=== PATIENT | female | born 1995 | race African-American/Black ===

== ENCOUNTER 2018-12-15 11:23 | Emergency (ER) | payer OTHER ==
[~2018-12-15] VITALS: Ht 154.9 cm; Wt 77.1 kg
[2018-12-15 12:05] LABS: URINE BILIRUBIN NEGATIVE (Negative); URINE BLOOD 3+ (Negative); URINE COLOR YELLOW; URINE GLUCOSE-RANDOM* NEGATIVE (Negative); URINE KETONES NEGATIVE (Negative); URINE LEUKOCYTES-REFLEX NEGATIVE (Negative); URINE NITRITE-REFLEX NEGATIVE (Negative); URINE PROTEIN (DIPSTICK) TRACE (Negative); URINE SPECIFIC GRAVITY 1.015 (1.005-1.035)
[2018-12-15 12:07] LABS: URINE CLARITY HAZY
[2018-12-15 12:08] LABS: BASOPHILS 0.6 % (0.0-2.0); EOSINOPHILS 0.8 % (0.0-3.0); HEMATOCRIT 33.8 % (37.0-47.0); HEMOGLOBIN 10.7 gm/dL (12.0-15.0); LYMPHOCYTES 23.4 % (24.0-44.0); MCH 26.7 pg (26.0-34.0); MCHC 31.5 g/dL (28.0-37.0); MCV 84.7 fL (80.0-100.0); MONOCYTES 10.8 % (1.0-8.0); POLYS 64.4 % (36.0-66.0); RBC 3.99 mil/uL (4.20-5.00); RDW 14.8 % (10.5-14.5); WBC 9.3 thou/uL (4.0-11.0)
[2018-12-15 12:11] LABS: CALCIUM 8.8 mg/dL (8.5-10.1); CREATININE 0.8 mg/dL (0.6-1.0); POTASSIUM 3.6 mmol/L (3.5-5.1)
[2018-12-15 12:20] LABS: SQUAMOUS 0-3 Few /LPF (0-3)
[2018-12-15 12:21] LABS: CASTS None Seen /LPF (None Seen); CRYSTALS None Seen /LPF (None Seen); URINE RBC >20 Many /HPF (0-2); URINE WBC-REFLEX 0-5 Rare /HPF (0-5)
[2018-12-15 12:22] LABS: BACTERIA-REFLEX 1-9 Few /HPF (None Seen)
[2018-12-15] MEDS ORDERED: ULTRAM 50MG TAB50 MG PO (12:48)
[2018-12-15] MEDS ORDERED: NAPROSYN500 MG PO (12:48)
[2018-12-15 13:13] VITALS: BP 106/64
[2018-12-15 13:52] LABS: LARGE PLATELETS MANY; PLATELET COUNT 364 thou/uL (150-400)
== END 2018-12-15 13:14 | disposition home or self-care (01) ==
LOC: ER 11:23
PROVIDERS: Nurse Practitioner Family
DX: N94.6 Dysmenorrhea, unspecified (principal)

== ENCOUNTER 2019-11-06 09:48 | Inpatient (IN) | payer OTHER ==
[~2019-11-06] VITALS: Ht 154.9 cm; Wt 74.4 kg
--- NOTE | ~2019-11-06 | EMS ---
[facility] [address] [place] [address] EMS Patient Care Report Name: SHADY EDWARDS Room #: PRE DARRION M.Jaleesa#: [id number] Admission: Attend Phys: Discharge: Date of : [birth year] Report #: [id number] THIS REPORT FOR: //name// Report Transmitted: 11/06/2019 09:11 EMS Care Summary [facility] MED-ACT Incident [id number] @ 11/06/2019 09:23 Incident Location [address] [place] [address] Patient SHADY EDWARDS Female, 24 Years 1995 Patient Address [address] [place] [address] Patient History Ovarian Cysts, Patient Allergies No known allergies, Patient Medications None Reported, Chief Complaint abdominal and leg pain Disposition Transported No Lights/[place] [facility] Reason Sick Person Transported To [facility] Narrative The pt said she developed abdominal pain yesterday morning. She said the pain has been "sharp" and it increased over the last 24 hours. She said today, she [facility] [address] [place] [address] EMS Patient Care Report Name: SHADY EDWARDS Room #: PRE Anthony#: [id number] Admission: Attend Phys: Discharge: Date of : [birth year] Report #: [id number] also was having pain in both legs. She said she was diagnosed with an "ovarian cyst" about 2 years ago and she said the pain felt similar. The pt said she has been nauseated today off and on, but has not vomited. She denied diarrhea, fever, cough, blood in the stool, shortness of breath or headache. She said she hasn't been around anyone with COVID-19 recently or traveled. The pt was unable to rate her pain other than saying "it hurts." The pt said she had no possibility of . The pt was sitting on the floor inside her apartment. HPI, PMH, Exam, vitals. The pt walked to the ambulance and was secured in the capt's chair. Enroute: Vitals. Biocom to [place]. No orders req'd/rec'd. The pt walked to the ER and ER staff helped her into the bathroom for a urine sample. Report given to RN. Initial Vitals @09:40P: 62,R: 16,BP: 136/85,Pain: 5/10,GCS: 15,SpO2: 98,Revised Trauma: 12, @09:43P: 70,R: 18,Pain: 4/10,GCS: 15,SpO2: 98, Assessments @09:38MENTAL:Person Oriented,Time Oriented,Place Oriented,Event Oriented,SKIN:HEENT:Head/Face: No Abnormalities,Neck/Airway: No Abnormalities,LUNG SOUNDS:General: Nausea,General: Other,ABDOMEN:General: Nausea,General: Other,PELVIS//GI:No Abnormalities,EXTREMITIES:Right Leg: Abnormal Sensation,Left Leg: Abnormal Sensation,Left Arm: No Abnormalities,Right Arm: No Abnormalities,PULSE:NEURO:No Abnormalities, Impression Abdominal Pain Timeline 09:21,Call Received 09:21,Psap Call 09:23,Dispatched 09:23,En Route 09:31,On Scene 09:33,At Patient 09:36,Depart Scene 09:40,BP: 136/85 M,PULSE: 62,RR: 16 R,SPO2: 98 Ox,ETCO2: ,BG: ,PAIN: 5,GCS: 15, 09:43,BP: / M,PULSE: 70,RR: 18 R,SPO2: 98 Ox,ETCO2: ,BG: ,PAIN: 4,GCS: 15, 09:44,At Destination 09:53,Call Closed Disclaimer v1.1 Copyright 2020 [employer] This EMS Care Summary contains data elements from the applicable legal record [address] [address] EMS Patient Care Report Name: SHADY EDWARDS Room #: PRE M.R.#: [id number] Admission: Attend Phys: Discharge: Date of : [birth year] Report #: [id number] (which may be displayed differently). It is designed to provide pertinent information for the following purposes: continuity of care, clinical quality, and state data reporting. The complete legal record is available to ED staff and administrators of the receiving hospital in [employer] Patient Tracker. All data is provided "as is."
--- NOTE | ~2019-11-06 | O ---
[facility] [place] [address] OPERATIVE REPORT Name: SHADY EDWARDS Room #: 458-P ADM IN M.R.#: [id number] Admission: 11/06/19 Attend Phys: Mina Farah MD Discharge: Date of : [birth year] Report #: [id number] THIS REPORT FOR: cc: [facility] - Clinic physician unknown [facility] - Clinic physician unknown Faustino Greenberg MD ~ CC: [facility] unknown Mina Fraah DATE OF SERVICE: 11/07/2019 PREOPERATIVE DIAGNOSIS: Left lower abdominal wall fluid collection. POSTOPERATIVE DIAGNOSIS: Lower abdominal wall hematoma. OPERATION: Incision and drainage of left lower abdominal wall hematoma. SURGEON: Faustino Greenberg MD ANESTHESIA: General. ESTIMATED BLOOD LOSS: 5 mL. SPECIMEN: None. DESCRIPTION OF PROCEDURE: After informed consent was obtained, the patient was brought to the operating room and placed supine. SCDs were placed and working, preoperative antibiotics were administered, general anesthesia was induced. The abdomen was prepped and draped in the usual sterile fashion. A 3-cm incision was made over her previous incision in the left lower quadrant of the abdomen. Cautery dissection was made down to the rectus sheath. Rectus sheath was incised. Immediately old blood was removed. This was a hematoma. The blood was then suctioned out. The cavity was irrigated with normal saline. The fascia was reapproximated with a [id number] 0 Vicryl. The wound was then left packed with iodoform gauze. Sterile dressings were applied. COMPLICATIONS: None. DISPOSITION: The patient was taken to recovery in satisfactory condition. By: [id number] Faustino Greenberg MD /nt
[2019-11-06 09:48] VITALS: BP 148/71
[~2019-11-06 09:48] MED LIST: NAPROSYN500 MG PO; ULTRAM 50MG TAB50 MG PO
[2019-11-06 10:08] LABS: URINE BILIRUBIN NEGATIVE (Negative); URINE BLOOD 3+ (Negative); URINE CLARITY CLEAR; URINE COLOR YELLOW; URINE GLUCOSE-RANDOM* NEGATIVE (Negative); URINE KETONES NEGATIVE (Negative); URINE LEUKOCYTES-REFLEX TRACE (Negative); URINE PROTEIN (DIPSTICK) NEGATIVE (Negative); URINE SPECIFIC GRAVITY 1.025 (1.005-1.035); URINE UROBILINOGEN 0.2 E.U./dl (0.2-1.0)
[2019-11-06 10:10] LABS: URINE NITRITE-REFLEX POSITIVE (Negative)
[2019-11-06 10:19] LABS: BACTERIA-REFLEX >30 Many /HPF (None Seen); CASTS None Seen /LPF (None Seen); MUCUS 4-6 Moderate strn/LPF (None Seen); SQUAMOUS 4-10 Moderate /LPF (0-3); URINE RBC 3-10 Few /HPF (0-2); URINE WBC-REFLEX 0-5 Rare /HPF (0-5)
[2019-11-06 10:20] LABS: CRYSTALS None Seen /LPF (None Seen)
[2019-11-06 10:22] LABS: BASOPHILS 0.4 % (0.0-2.0); EOSINOPHILS 0.9 % (0.0-3.0); HEMATOCRIT 37.6 % (37.0-47.0); HEMOGLOBIN 12.2 gm/dL (12.0-15.0); LYMPHOCYTES 12.5 % (24.0-44.0); MCH 28.8 pg (26.0-34.0); MCHC 32.4 g/dL (28.0-37.0); MONOCYTES 9.1 % (1.0-8.0); POLYS 77.1 % (36.0-66.0); RBC 4.23 mil/uL (4.20-5.00); WBC 11.7 thou/uL (4.0-11.0)
[2019-11-06 10:25] LABS: CREATININE 0.7 mg/dL (0.6-1.0); POTASSIUM 3.7 mmol/L (3.5-5.1)
[2019-11-06 10:31] LABS: ALBUMIN 4.1 g/dL (3.4-5.0); TOTAL BILIRUBIN 0.5 mg/dL (0.2-1.0); TOTAL PROTEIN 8.3 g/dL (6.4-8.2)
[2019-11-06 14:24] LABS: PLATELET COUNT 321 thou/uL (150-400)
[2019-11-06 16:06] LABS: AMP/METHAMP Negative (Negative); BARBITURATES Negative (Negative); BENZODIAZEPINES Negative (Negative); COCAINE Negative (Negative); METHADONE Negative (Negative); OPIATES POSITIVE (Negative); PCP Negative (Negative)
[2019-11-06 22:31] VITALS: BP 92/66
[2019-11-06 22:42] VITALS: BP 94/45
[2019-11-06 22:54] VITALS: BP 108/56
--- NOTE | 2019-11-07 00:34 | NUR ---
ADMITTED TO THE UNIT AT AT APPROXIMATELY 2330. PT IS A/O AND UP AD KIARA. ABLE TO MAKE NEEDS KNOWN. C/O PAIN IN LOWER ABDOMEN. PRN PAIN MEDICATION WILL BE GIVEN DIRECTED. CONSENTS SIGNED, HX AND ASSESSMENT COMPLETED AND DOCUMENTED. CALL LIGHT IS WITHIN REACH. WILL CONTINUE TO MONITOR.
[2019-11-07 04:55] VITALS: BP 98/49
[2019-11-07 06:48] LABS: HEMATOCRIT 31.5 % (37.0-47.0); MCHC 32.5 g/dL (28.0-37.0); MCV 89.3 fL (80.0-100.0); RBC 3.52 mil/uL (4.20-5.00); RDW 15.9 % (10.5-14.5); WBC 7.5 thou/uL (4.0-11.0)
[2019-11-07 06:54] LABS: HEMOGLOBIN 10.2 gm/dL (12.0-15.0)
[2019-11-07 07:05] VITALS: BP 112/63
[2019-11-07 07:09] LABS: CALCIUM 7.8 mg/dL (8.5-10.1); CREATININE 0.7 mg/dL (0.6-1.0); POTASSIUM 3.3 mmol/L (3.5-5.1)
--- NOTE | 2019-11-07 12:22 | NUR ---
Received awake on bed. On nothing per orem- pt informed and aware. A+Ox4. On MS. On room air. Vital signs stable. Continent of bowel and bladder- able to go to the toilet. Up ad atif. Independent with ADLs. With NS at 75cc/hr, infusing well at L AC; on IV antibiotics. Consults called in by US. Complained of pain, due PRN pain meds given as prescribed. Possible surgery today, a/w time and report to be given to Pre-op nurse. Pre op nurse informed still a/w covid swab result, report given; consent to be signed. Pt fetched by pre op transport staff via bed. To continue monitoring patient.
[2019-11-07 14:20] VITALS: BP 121/65
[2019-11-07 14:30] VITALS: BP 117/82
--- NOTE | 2019-11-07 14:59 | NUR ---
PT ADMITTED RELATED TO INTERMUSCULAR ABCSESS. CM REVIEWED CHART AND SPOKE WITH CARE TEAM. CM ATTEMPTED MULTIPAL PHONE CALLS TO PT'S ROOM WIHT NO RESPONSE OF THIS NOTE. CHART INDICATES THAT PT RESIDES IN AN APARTMENT WITH HER CHILDREN. PT UNDERWENT I&D OF INTERMUSCULAR ABCSESS THIS AFTERNOON. PT IS ON TWO IV ABX AT THIS TIME. PT IS LISTED PATIENT PAY. CM TO CONTINUE TO FOLLOW UP WITH PT TO ASSESS FOR ANY POSSIBLE NEEDS UPON DC. CM TO FOLLOW INDICATED WITH DC PLANNING.
[2019-11-07 15:05] VITALS: BP 121/85
[2019-11-07 20:00] VITALS: BP 108/56
--- NOTE | 2019-11-08 03:43 | NUR ---
ASSUMED CARE OF PT AT 1900. PT IS A/O X4. C/O PAIN. PRN PAIN MEDICATION GIVEN. DRESSING TO ABDOMEN IS CLEAN, DRY, AND INTACT WITH NO DRAINAGE. PT IS CURRENTLY IN HER BED AND APPEARS TO BE WATCHING TV. IV TO LEFT AC REMOVED WITH CATHETER INTACT. NEW IV PLACED. CALL LIGHT IS WITHIN REACH. WILL CONTINUE TO MONITOR.
[2019-11-08 06:05] LABS: HEMOGLOBIN 10.3 gm/dL (12.0-15.0); MCH 29.4 pg (26.0-34.0); MCHC 33.1 g/dL (28.0-37.0); MCV 88.6 fL (80.0-100.0); RBC 3.5 mil/uL (4.20-5.00); RDW 15.7 % (10.5-14.5); WBC 10.9 thou/uL (4.0-11.0)
[2019-11-08 06:26] LABS: CALCIUM 8.4 mg/dL (8.5-10.1); CREATININE 0.6 mg/dL (0.6-1.0); POTASSIUM 3.9 mmol/L (3.5-5.1)
[2019-11-08 07:38] VITALS: BP 124/54
[2019-11-08] MEDS ORDERED: KEFLEX500 M1 PO (08:37)
[2019-11-08] MEDS ORDERED: HYDROCODON-ACE1 EAC7 PO (08:37)
[2019-11-08 11:41] VITALS: BP 124/54
--- NOTE | 2019-11-08 13:37 | NUR ---
ASSESSMENT CHARTED - MEDS PER GOLDEN - AQUILES DIET AND FLUIDS. GIVEN FENTANYL 50 MCS X 1 DOSE FOR CO'S OF PAIN WITH MOD EFFECT. PT UP TO THE BATHROOM, DRESSING CHANGED PER DR SPENCE ORDER AND PATIENT EDUCATED ON HOW TO CHANGE DRESSING AT HOME AND GIVEN SUPPLIES TO BE ABLE TO DO THIS DAILY. STATED UNDERSTANDING OF HOW TO CHANGE DRESSING. PT TO FOLLOW P WITH SURGEON IN 1 WEEK HE STATED THEY WOULD CALL HER FOR APPT. PT HOME THIS AFTERNOON INSTRUCTION RE HOME MEDS. CARE AND FOLLOW UP GIVEN TO PATIENT, STATED UNDERSTANDING OF INSTRUCTION GIVEN. PATEINT GIVEN A WORK EXCUSE THAT ALLOWS HE BACK TO WORK IN WEEK PER DR SPENCE. IV REMOVED PRIOR TO D/C. LEFT UNIT VIA WHEELCHAIR, HOME VIA PVT VEHICLE ACCOMPANIED BY MOTHER. NO CO'S AT TIME OF D/C.
--- NOTE | 2019-11-08 14:25 | NUR ---
CARE TEAM INDICATED THAT PT IS MEDICALLY STABLE TO DC HOME THIS DAY. PT IS TO DC HOME TO SELF CARE. NO OTHER CM INTERVENTION INDICATED. CASE CLOSED.
== END 2019-11-08 12:50 | disposition home or self-care (01) | DRG 674 ==
LOC: ER 09:48 → EROBS 15:40 → 4W 22:43
PROVIDERS: Emergency Medicine; ADMIT Hospitalist; ATTEND Hospitalist
PROC: 0W9F0ZZ Drainage of Abdominal Wall, Open Approach (ICD-10-PCS; principal; 2019-11-07)
DX: N30.90 Cystitis, unspecified without hematuria (principal); M60.009 Infective myositis, unspecified site; S30.1XXA Contusion of abdominal wall, initial encounter; N94.6 Dysmenorrhea, unspecified; Z79.899 Other long term (current) drug therapy; Z20.828 Contact with and (suspected) exposure to other viral communicable diseases
CPT/HCPCS: 10040; 50010; 50386; 50403; 56525